=== PATIENT | male | born 1960 | race Caucasian/White ===

== ENCOUNTER 2020-03-08 14:23 | Emergency (ER) | payer OTHER ==
[~2020-03-08] VITALS: Ht 180.3 cm; Wt 111.1 kg
[2020-03-08] MEDS ORDERED: IMITREX 25 MG T25 M1 PO (14:32)
[2020-03-08] MEDS ORDERED: CENTANY30 GM TOP (15:54)
[2020-03-08] MEDS ORDERED: AUGMENTIN 875-1 EACH PO (15:54)
[2020-03-08 16:28] VITALS: BP 170/99
== END 2020-03-08 16:28 | disposition home or self-care (01) ==
LOC: M.ERS 14:23
DX: S61.511A Laceration without foreign body of right wrist, initial encounter (principal); S61.031A Puncture wound without foreign body of right thumb without damage to nail, initial encounter; S50.02XA Contusion of left elbow, initial encounter; S61.451A Open bite of right hand, initial encounter; M25.512 Pain in left shoulder; W54.0XXA Bitten by dog, initial encounter; Y93.89 Activity, other specified; Y92.89 Other specified places as the place of occurrence of the external cause; Y99.8 Other external cause status